=== PATIENT | female | born 1990 | race African-American/Black ===

== ENCOUNTER 2017-12-06 15:10 | Emergency (ER) | payer OTHER ==
[2017-12-06 16:55] LABS: BASO % 0.2 % (0.0-1.0); EOS # 0.1 10^3/uL (0.0-0.50); EOS % 1.5 % (0.0-3.0); HEMATOCRIT 39.4 % (36.0-47.0); HEMOGLOBIN 12.8 g/dl (12.0-16.0); IMMATURE GRANULOCYTE % 0.3 % (0-3.0); LYMPH # 1.9 10^3/uL (1.5-6.5); LYMPH % 30.5 % (24.0-44.0); MEAN CORPUSCULAR HEMOGLOBIN 29.2 pg (27.0-33.0); MEAN CORPUSCULAR HGB CONC 32.5 g/dl (32.0-36.5); MEAN CORPUSCULAR VOLUME 89.7 fl (80.0-96.0); MONO # 0.7 10^3/uL (0.0-0.8); NEUTROPHILS # 3.5 10^3/uL (1.8-7.7); NEUTROPHILS % 56.5 % (36.0-66.0); PLATELET COUNT, AUTOMATED 227 10^3/uL (150-450); RED BLOOD COUNT 4.39 10^6/uL (4.00-5.40); RED CELL DISTRIBUTION WIDTH 13.9 % (11.5-14.5); WHITE BLOOD COUNT 6.2 10^3/uL (4.0-10.0)
[2017-12-06 17:12] LABS: KETONE, URINE AUTO RFX NEGATIVE (NEGATIVE); LEUKOCYTE ESTERASE UR AUTO RFX NEGATIVE (NEGATIVE); NITRITE, URINE AUTO RFX NEGATIVE (NEGATIVE); RBC, URINE AUTO RFX 1 /HPF (0-3); SPECIFIC GRAVITY UR AUTO RFX 1.009 (1.002-1.035); SQUAM EPITHELIAL CELL UR AURFX 0 /HPF (0-6); WBC, URINE AUTO RFX 0 /HPF (0-3)
[2017-12-06 17:22] LABS: HCG, SERUM QUANTITATIVE 1423 MIU/ML
== END 2017-12-06 18:10 | disposition home or self-care (01) ==
LOC: M ED 15:10
DX: O99.89 Other specified diseases and conditions complicating pregnancy, childbirth and the puerperium (principal); N93.9 Abnormal uterine and vaginal bleeding, unspecified; Z3A.00 Weeks of gestation of pregnancy not specified; Z87.891 Personal history of nicotine dependence
CPT/HCPCS: 76801

== ENCOUNTER 2018-01-28 13:03 | Inpatient (IN) | payer OTHER ==
[2018-01-28] MEDS: MORPHINE 4 MG/ML 1ML VIAL/SYRINGE (J2270) IV (13:25)
[2018-01-28] MEDS: NS 1,000 ML IV (13:34)
[2018-01-28 13:39] LABS: EOS % 0.1 % (0.0-3.0); HEMATOCRIT 31.4 % (36.0-47.0); HEMOGLOBIN 10.6 g/dl (12.0-15.5); IMMATURE GRANULOCYTE % 0.3 % (0-3.0); LYMPH # 1.2 10^3/uL (1.5-6.5); LYMPH % 11.7 % (24.0-44.0); MEAN CORPUSCULAR HEMOGLOBIN 29.2 pg (27.0-33.0); MEAN CORPUSCULAR HGB CONC 33.8 g/dl (32.0-36.5); MEAN CORPUSCULAR VOLUME 86.5 fl (80.0-96.0); MONO # 0.8 10^3/uL (0.0-0.8); MONO % 7.7 % (0.0-5.0); NEUTROPHILS % 80.2 % (36.0-66.0); PLATELET COUNT, AUTOMATED 273 10^3/uL (150-450); RED BLOOD COUNT 3.63 10^6/uL (4.00-5.40); RED CELL DISTRIBUTION WIDTH 13.2 % (11.5-14.5); WHITE BLOOD COUNT 9.9 10^3/uL (4.0-10.0)
[2018-01-28 13:53] LABS: INR 1.04; PROTHROMBIN TIME 13.8 SECONDS (12.4-14.5)
[2018-01-28 14:07] LABS: CK-MB VALUE MASS < 1.0 NG/ML (<3.6); CPK CREATINE PHOSPHOKINASE 71 U/L (26-192); TROPONIN I < 0.02 NG/ML (< 0.10)
[2018-01-28] MEDS: ONDANSETRON 4MG/2ML VIAL (J2405) IV (14:12)
[2018-01-28] MEDS: HYDROmorphone HCL 1 MG/ML SYRINGE (J1170) IV ×2 (14:13→16:13)
[2018-01-28 15:08] LABS: ALBUMIN 4.4 GM/DL (3.2-5.2); ALBUMIN/GLOBULIN RATIO 1.33 (1.00-1.93); ALKALINE PHOSPHATASE 52 U/L (45-117); ALT/SGPT 16 U/L (12-78); AMYLASE 43 U/L (25-115); ANION GAP 8 MEQ/L (8-16); AST/SGOT 12 U/L (7-37); BILIRUBIN,DIRECT 0.3 MG/DL (0.0-0.2); BILIRUBIN,TOTAL 0.8 MG/DL (0.2-1.0); BLOOD UREA NITROGEN 14 MG/DL (7-18); CALCIUM LEVEL 8.7 MG/DL (8.5-10.1); CARBON DIOXIDE LEVEL 24 MEQ/L (21-32); CHLORIDE LEVEL 104 MEQ/L (98-107); GLOMERULAR FILTRATION RATE > 60.0 (>60); GLUCOSE, FASTING 127 MG/DL (70-100); HCG, SERUM QUANTITATIVE 303 MIU/ML; LIPASE 31 U/L (73-393); POTASSIUM SERUM 3.9 MEQ/L (3.5-5.1); SODIUM LEVEL 136 MEQ/L (136-145); TOTAL PROTEIN 7.7 GM/DL (6.4-8.2)
[2018-01-28] MEDS: BUPIVACAINE HCL 0.25% 30 ML VIAL As Ordered ×2 (16:27→18:30)
[2018-01-28] MEDS ORDERED: MIDAZOLAM INJ 2 MG/2 ML VIAL (J2250) As Ordered (16:32)
[2018-01-28] MEDS ORDERED: ROCURONIUM BROMIDE 50 MG/5 ML VIAL As Ordered (16:32)
[2018-01-28] MEDS ORDERED: SUCCINYLCHOLINE 100 MG/5 ML SYRINGE (J0330) As Ordered (16:32)
[2018-01-28] MEDS ORDERED: fentaNYL 100 MCG/2 ML INJECTION (J3010) As Ordered ×2 (16:32→20:05)
[2018-01-28] MEDS ORDERED: PROPOFOL 200 MG/20 ML VIAL As Ordered (16:32)
[2018-01-28] MEDS ORDERED: LIDOCAINE 2% INJ 100 MG/5 ML SDV (FOR ANES.) As Ordered (16:32)
[2018-01-28] MEDS ORDERED: NEOSTIGMINE 10 MG/10 ML VIAL (J2710) As Ordered (18:58)
[2018-01-28] MEDS ORDERED: GLYCOPYRROLATE INJ 0.2 MG/ML 2 ML VIAL As Ordered (18:59)
[2018-01-28] MEDS ORDERED: dexameTHASONE 4 MG/ML 1ML VIAL (J1100) As Ordered (19:02)
[2018-01-28] MEDS ORDERED: ONDANSETRON 4MG/2ML VIAL (J2405) As Ordered (19:02)
[2018-01-28] MEDS: SILVER NITRATE APPLICATOR As Ordered (19:45)
[2018-01-28] MEDS ORDERED: PERCOCET 5MG/325MG TAB PO (20:15)
[2018-01-28] MEDS: fentaNYL 100 MCG/2 ML INJECTION (J3010) IV ×4 (20:15→20:30)
[2018-01-28] MEDS ORDERED: METOCLOPRAMIDE INJ 10MG/2ML VIAL (J2765) IV (20:15)
[2018-01-28] MEDS ORDERED: ONDANSETRON 4MG/2ML VIAL (J2405) IV ×2 (20:15)
[2018-01-28] MEDS ORDERED: HYDROmorphone HCL 1 MG/ML SYRINGE (J1170) IV (20:15)
[2018-01-28] MEDS: PERCOCET 5MG/325MG TAB PO (20:30)
[2018-01-28] MEDS: LR 1,000 ML IV ×2 (21:21→21:43)
[2018-01-28] MEDS: KETOROLAC 30 MG/ML VIAL (J1885) IV (21:21)
[2018-01-28] MEDS: DOCUSATE SODIUM 100 MG CAP PO (21:21)
[2018-01-29] MEDS: KETOROLAC 30 MG/ML VIAL (J1885) IV ×3 (03:04→16:11)
[2018-01-29] MEDS: LR 1,000 ML IV ×3 (05:23→17:11)
[2018-01-29 05:30] LABS: IMMATURE GRANULOCYTE % 0.1 % (0-3.0); LYMPH # 0.8 10^3/uL (1.5-6.5); LYMPH % 10.5 % (24.0-44.0); MEAN CORPUSCULAR HEMOGLOBIN 29.7 pg (27.0-33.0); MEAN CORPUSCULAR VOLUME 90.1 fl (80.0-96.0); MONO # 0.7 10^3/uL (0.0-0.8); MONO % 8.5 % (0.0-5.0); NEUTROPHILS # 6.4 10^3/uL (1.8-7.7); NEUTROPHILS % 80.9 % (36.0-66.0); PLATELET COUNT, AUTOMATED 174 10^3/uL (150-450); RED BLOOD COUNT 2.22 10^6/uL (4.00-5.40); RED CELL DISTRIBUTION WIDTH 13.3 % (11.5-14.5); WHITE BLOOD COUNT 7.9 10^3/uL (4.0-10.0)
[2018-01-29] MEDS: PERCOCET 5MG/325MG TAB PO ×2 (05:30→19:07)
[2018-01-29 05:33] LABS: HEMOGLOBIN 6.6 g/dl (12.0-15.5)
[2018-01-29] MEDS ORDERED: NS 1,000 ML IV (07:05)
[2018-01-29] MEDS: diphenhydrAMINE 25 MG CAP PO (08:20)
[2018-01-29] MEDS: DOCUSATE SODIUM 100 MG CAP PO (08:20)
[2018-01-29] MEDS: ACETAMINOPHEN TAB 650MG DOSE (2X325MG) PO (08:21)
[2018-01-29 09:13] LABS: IMMEDIATE SPIN CROSSMATCH 1 2
[2018-01-29 19:10] LABS: HEMATOCRIT 25.7 % (36.0-47.0); HEMOGLOBIN 8.5 g/dl (12.0-15.5); MEAN CORPUSCULAR HEMOGLOBIN 29.4 pg (27.0-33.0); MEAN CORPUSCULAR HGB CONC 33.1 g/dl (32.0-36.5); MEAN CORPUSCULAR VOLUME 88.9 fl (80.0-96.0); PLATELET COUNT, AUTOMATED 166 10^3/uL (150-450); RED BLOOD COUNT 2.89 10^6/uL (4.00-5.40); RED CELL DISTRIBUTION WIDTH 13.7 % (11.5-14.5); WHITE BLOOD COUNT 7.4 10^3/uL (4.0-10.0)
== END 2018-01-29 22:14 | disposition home or self-care (01) | DRG 777 ==
LOC: M ED 13:03 → M SDC 16:45 → M OBS 20:56
PROC: 0UT64ZZ Resection of Left Fallopian Tube, Percutaneous Endoscopic Approach (ICD-10-PCS; principal; 2018-01-28 14:45)
PROC: 0W9J4ZZ Drainage of Pelvic Cavity, Percutaneous Endoscopic Approach (ICD-10-PCS; 2018-01-28 14:45)
PROC: 30233N1 Transfusion of Nonautologous Red Blood Cells into Peripheral Vein, Percutaneous Approach (ICD-10-PCS; 2018-01-28 17:55)
DX: O00.102 Left tubal pregnancy without intrauterine pregnancy (principal); K66.1 Hemoperitoneum; O08.89 Other complications following an ectopic and molar pregnancy

== ENCOUNTER 2018-02-22 05:19 | Emergency (ER) | payer OTHER ==
[2018-02-22 06:16] LABS: BASO % 0.4 % (0.0-1.0); EOS % 0.7 % (0.0-3.0); HEMATOCRIT 37.7 % (36.0-47.0); HEMOGLOBIN 12.3 g/dl (12.0-15.5); IMMATURE GRANULOCYTE % 0.4 % (0-3.0); LYMPH # 1.6 10^3/uL (1.5-6.5); LYMPH % 28.7 % (24.0-44.0); MEAN CORPUSCULAR HEMOGLOBIN 28.9 pg (27.0-33.0); MEAN CORPUSCULAR HGB CONC 32.6 g/dl (32.0-36.5); MEAN CORPUSCULAR VOLUME 88.5 fl (80.0-96.0); MONO # 0.6 10^3/uL (0.0-0.8); MONO % 11.5 % (0.0-5.0); NEUTROPHILS # 3.2 10^3/uL (1.8-7.7); NEUTROPHILS % 58.3 % (36.0-66.0); PLATELET COUNT, AUTOMATED 214 10^3/uL (150-450); RED BLOOD COUNT 4.26 10^6/uL (4.00-5.40); WHITE BLOOD COUNT 5.4 10^3/uL (4.0-10.0)
[2018-02-22 06:28] LABS: INR 1.04; PROTHROMBIN TIME 13.7 SECONDS (12.4-14.5)
[2018-02-22] MEDS ORDERED: ISOVUE-370 76% 100ML VIAL (Q9967) As Ordered (06:41)
[2018-02-22 06:42] LABS: ALBUMIN/GLOBULIN RATIO 1.03 (1.00-1.93); ALKALINE PHOSPHATASE 61 U/L (45-117); ALT/SGPT 39 U/L (12-78); ANION GAP 7 MEQ/L (8-16); AST/SGOT 52 U/L (7-37); BILIRUBIN,DIRECT < 0.1 MG/DL (0.0-0.2); BILIRUBIN,TOTAL 0.2 MG/DL (0.2-1.0); BLOOD UREA NITROGEN 7 MG/DL (7-18); CALCIUM LEVEL 8.6 MG/DL (8.5-10.1); CARBON DIOXIDE LEVEL 25 MEQ/L (21-32); CHLORIDE LEVEL 108 MEQ/L (98-107); CK-MB VALUE MASS 6.5 NG/ML (<3.6); CPK CREATINE PHOSPHOKINASE 540 U/L (26-192); CREATININE FOR GFR 0.83 MG/DL (0.55-1.30); ETHYL ALCOHOL (ETHANOL) 0.148 % (0.000-0.010); GLOMERULAR FILTRATION RATE > 60.0 (>60); GLUCOSE, FASTING 98 MG/DL (70-100); LIPASE 63 U/L (73-393); POTASSIUM SERUM 3.6 MEQ/L (3.5-5.1); SODIUM LEVEL 140 MEQ/L (136-145); TOTAL PROTEIN 7.9 GM/DL (6.4-8.2); TROPONIN I < 0.02 NG/ML (< 0.10)
[2018-02-22 06:50] LABS: LACTIC ACID SEPSIS PROTOCOL 1.2 MMOL/L (0.4-2.0)
[2018-02-22 07:15] LABS: HIVSOURCE0 NEGATIVE (NEGATIVE)
[2018-02-22 07:18] LABS: CONTROL LINE INT CTR LINE PRESENT; HIV SOURCE PT 1 NEGATIVE (NEGATIVE)
[2018-02-22 07:32] LABS: AMPHETAMINES LEVEL URINE NEGATIVE (NEGATIVE); BARBITURATES URINE NEGATIVE (NEGATIVE); BENZODIAZEPINES URINE POSITIVE (NEGATIVE); CANNABINOIDS URINE POSITIVE (NEGATIVE); COCAINE METABOLITE URINE NEGATIVE (NEGATIVE); METHADONE URINE NEGATIVE (NEGATIVE); OPIATES URINE NEGATIVE (NEGATIVE); PHENCYCLIDINE URINE NEGATIVE (NEGATIVE)
[2018-02-22] MEDS: PERCOCET 5MG/325MG TAB PO (14:45)
[2018-02-23 09:31] LABS: HEPATITIS B SURFACE ANTIGEN NEGATIVE (NEGATIVE)
[2018-02-23 09:58] LABS: HEPATITIS C VIRUS ABY INDEX < 0.0 INDEX (<0.8)
== END 2018-02-22 15:49 | disposition home or self-care (01) ==
LOC: M ED 05:19
DX: S86.812A Strain of other muscle(s) and tendon(s) at lower leg level, left leg, initial encounter (principal); S80.02XA Contusion of left knee, initial encounter; F10.129 Alcohol abuse with intoxication, unspecified; V48.0XXA Car driver injured in noncollision transport accident in nontraffic accident, initial encounter; Y92.9 Unspecified place or not applicable; Y93.9 Activity, unspecified; Y99.9 Unspecified external cause status; F17.200 Nicotine dependence, unspecified, uncomplicated; M47.812 Spondylosis without myelopathy or radiculopathy, cervical region
CPT/HCPCS: Q9967

== ENCOUNTER → 2018-07-28 | Outpatient (CLI) | payer OTHER | LOC: M OUTALCOH 08:49 | DX: F10.20 Alcohol dependence, uncomplicated (principal) ==

== ENCOUNTER → 2019-01-28 | Outpatient (CLI) | payer OTHER ==
[~2019-01-28] MED LIST: COLA100C5 PO; NAPR-885 PO; OXYC1TAB23 PO; PERC5TAB12 PO; prenatal PO
== END ==
LOC: M OUTALCOH 08:01
PROVIDERS: ATTEND Psychiatry & Neurology Psychiatry
DX: F10.20 Alcohol dependence, uncomplicated (principal)

== ENCOUNTER 2019-03-02 16:00 | Outpatient (RCR) | payer OTHER | END 2019-03-05 | LOC: M OUTALCOH 16:00 | PROVIDERS: ATTEND Psychiatry & Neurology Psychiatry | DX: F10.20 Alcohol dependence, uncomplicated (principal); Z72.0 Tobacco use ==

== ENCOUNTER 2019-03-21 05:58 | Inpatient (IN) | payer OTHER ==
[~2019-03-21] VITALS: Ht 170.2 cm; Wt 71.5 kg
[2019-03-21] VITALS (15 sets, daily range): BP systolic 137–167; BP diastolic 74–104; O2SAT 100
[2019-03-21] MEDS ORDERED: HALOPERIDOL 5 MG/ML VIAL (J1630) As Ordered ONE (06:04)
[2019-03-21] MEDS ORDERED: LORazepam 2 MG/ML VIAL (J2060) As Ordered ONE (06:04)
[2019-03-21] MEDS ORDERED: diphenhydrAMINE INJ 50MG/ML VIAL (J1200) As Ordered ONE (06:05)
[2019-03-21] MEDS ORDERED: ETOMIDATE INJ 20MG/10ML VIAL IV ONE (06:15)
[2019-03-21] MEDS ORDERED: LORazepam 2 MG/ML VIAL (J2060) IM ONE (06:15)
[2019-03-21] MEDS ORDERED: NS 1,000 ML IV ONE (06:15)
[2019-03-21] MEDS ORDERED: ROCURONIUM BROMIDE 50 MG/5 ML VIAL IV ONE (06:15)
[2019-03-21] MEDS ORDERED: diphenhydrAMINE INJ 50MG/ML VIAL (J1200) IM ONE (06:15)
[2019-03-21] MEDS ORDERED: HALOPERIDOL 5 MG/ML VIAL (J1630) IM ONE (06:15)
[2019-03-21] MEDS: PROPOFOL 1,000 MG in APPROPRIATE DILUENT 1 EA IV SCH ×7 (06:25→21:44)
[2019-03-21] MEDS ORDERED: ISOVUE-370 76% 100ML VIAL (Q9967) As Ordered ONE (06:30)
[2019-03-21 06:44] LABS: BASO % 0.3 % (0.0-1.0); EOS % 0.5 % (0.0-3.0); HEMATOCRIT 43.9 % (36.0-47.0); HEMOGLOBIN 14.4 g/dl (12.0-15.5); LYMPH # 2.6 10^3/uL (1.5-6.5); LYMPH % 45.5 % (24.0-44.0); MEAN CORPUSCULAR HEMOGLOBIN 29.5 pg (27.0-33.0); MEAN CORPUSCULAR HGB CONC 32.8 g/dl (32.0-36.5); MONO # 0.5 10^3/uL (0.0-0.8); MONO % 9.1 % (0.0-5.0); NEUTROPHILS # 2.5 10^3/uL (1.8-7.7); NEUTROPHILS % 44.3 % (36.0-66.0); PLATELET COUNT, AUTOMATED 276 10^3/uL (150-450); RED BLOOD COUNT 4.88 10^6/uL (4.00-5.40); WHITE BLOOD COUNT 5.7 10^3/uL (4.0-10.0)
[2019-03-21 07:12] LABS: CK-MB VALUE MASS 3.5 NG/ML (<3.6); CPK CREATINE PHOSPHOKINASE 455 U/L (26-192); ETHYL ALCOHOL (ETHANOL) 0.335 % (0.000-0.010); MB/CK RELATIVE INDEX 0.77 (< OR =4); TROPONIN I < 0.02 NG/ML (< 0.10)
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
[2019-03-21 07:29] LABS: ABG HCO3 19.6 MEQ/L (22.0-26.0); ABG O2 SATURATION 99.1 % (95.0-99.0); ABG PARTIAL PRESSURE CO2 35.2 mmHg (35.0-45.0); ABG PARTIAL PRESSURE O2 162.1 mmHg (75.0-100.0); ABG STANDARD HCO3 20.4 MEQ/L (22.0-26.0); ABG TOTAL CO2 20.7 MEQ/L (22.0-29.0); ABG pH (ARTERIAL) 7.364 UNITS (7.350-7.450)
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
[2019-03-21 07:43] LABS: AMPHETAMINES LEVEL URINE NEGATIVE (NEGATIVE); BARBITURATES URINE NEGATIVE (NEGATIVE); BENZODIAZEPINES URINE NEGATIVE (NEGATIVE); CANNABINOIDS URINE NEGATIVE (NEGATIVE); COCAINE METABOLITE URINE POSITIVE (NEGATIVE); METHADONE URINE NEGATIVE (NEGATIVE); OPIATES URINE NEGATIVE (NEGATIVE); PHENCYCLIDINE URINE NEGATIVE (NEGATIVE)
[2019-03-21] MEDS ORDERED: MIDAZOLAM INJ 2 MG/2 ML VIAL (J2250) IV ONE (08:15)
[2019-03-21] MEDS ORDERED: KETOROLAC 30 MG/ML VIAL (J1885) IV PRN (10:00)
[2019-03-21] MEDS ORDERED: ETOMIDATE INJ 20MG/10ML VIAL ONE (10:56)
[2019-03-21] MEDS ORDERED: ROCURONIUM BROMIDE 50 MG/5 ML VIAL ONE (10:56)
[2019-03-21] MEDS: MIDAZOLAM INJ 2 MG/2 ML VIAL (J2250) IV PRN ×10 (11:43→23:09)
[2019-03-21] MEDS: PANTOPRAZOLE 40MG INJ (PROTONIX) (C9113) IV SCH (11:58)
[2019-03-21] MEDS: LR 1,000 ML IV SCH ×2 (11:58→19:14)
[2019-03-21] MEDS: IPRATROPIUM 0.5MG/ALBUTEROL 2.5MG INH SOL UD 3ML (DUONEB)(J7620) NEB SCH ×4 (12:21→23:04)
[2019-03-21 14:20] LABS: BASO % 0.2 % (0.0-1.0); EOS # 0.1 10^3/uL (0.0-0.50); HEMATOCRIT 39.1 % (36.0-47.0); HEMOGLOBIN 12.7 g/dl (12.0-15.5); LYMPH # 1.5 10^3/uL (1.5-6.5); LYMPH % 23.4 % (24.0-44.0); MEAN CORPUSCULAR HEMOGLOBIN 28.8 pg (27.0-33.0); MEAN CORPUSCULAR HGB CONC 32.5 g/dl (32.0-36.5); MEAN CORPUSCULAR VOLUME 88.7 fl (80.0-96.0); MONO # 0.8 10^3/uL (0.0-0.8); NEUTROPHILS # 3.9 10^3/uL (1.8-7.7); NEUTROPHILS % 62.1 % (36.0-66.0); PLATELET COUNT, AUTOMATED 222 10^3/uL (150-450); RED BLOOD COUNT 4.41 10^6/uL (4.00-5.40); WHITE BLOOD COUNT 6.3 10^3/uL (4.0-10.0)
[2019-03-21 14:44] LABS: ALBUMIN 3.6 GM/DL (3.2-5.2); ALT/SGPT 28 U/L (12-78); BILIRUBIN,TOTAL 0.3 MG/DL (0.2-1.0); BLOOD UREA NITROGEN 7 MG/DL (7-18); CALCIUM LEVEL 8.1 MG/DL (8.5-10.1); CARBON DIOXIDE LEVEL 24 MEQ/L (21-32); CHLORIDE LEVEL 111 MEQ/L (98-107); CREATININE FOR GFR 0.81 MG/DL (0.55-1.30); GLOMERULAR FILTRATION RATE > 60.0 (>60); GLUCOSE, FASTING 88 MG/DL (70-100); POTASSIUM SERUM 3.2 MEQ/L (3.5-5.1); SODIUM LEVEL 144 MEQ/L (136-145); TOTAL PROTEIN 7.1 GM/DL (6.4-8.2)
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
[2019-03-21] MEDS: MORPHINE 4 MG/ML 1ML VIAL/SYRINGE (J2270) IV PRN ×2 (16:46→21:50)
[2019-03-21 18:12] LABS: ABG HCO3 20.3 MEQ/L (22.0-26.0); ABG O2 SATURATION 99.1 % (95.0-99.0); ABG PARTIAL PRESSURE CO2 38.9 mmHg (35.0-45.0); ABG PARTIAL PRESSURE O2 162.7 mmHg (75.0-100.0); ABG STANDARD HCO3 20.4 MEQ/L (22.0-26.0); ABG TOTAL CO2 21.5 MEQ/L (22.0-29.0); ABG pH (ARTERIAL) 7.336 UNITS (7.350-7.450)
[2019-03-21] MEDS ORDERED: ACETAMINOPHEN 325 MG/10.15 ML UDC GT PRN (23:45)
[2019-03-22] VITALS (15 sets, daily range): BP systolic 113–178; BP diastolic 57–102
[2019-03-22] MEDS: MIDAZOLAM INJ 2 MG/2 ML VIAL (J2250) IV PRN ×5 (00:33→07:25)
[2019-03-22] MEDS: PROPOFOL 1,000 MG in APPROPRIATE DILUENT 1 EA IV SCH ×3 (00:33→05:58)
[2019-03-22] MEDS: LR 1,000 ML IV SCH ×2 (02:45→10:38)
[2019-03-22] MEDS: POTASSIUM CHLORIDE 10% LIQ 20 MEQ/15 ML UDC NG SCH ×2 (02:45→04:28)
[2019-03-22] MEDS: IPRATROPIUM 0.5MG/ALBUTEROL 2.5MG INH SOL UD 3ML (DUONEB)(J7620) NEB SCH ×3 (03:30→11:33)
[2019-03-22] MEDS: MORPHINE 4 MG/ML 1ML VIAL/SYRINGE (J2270) IV PRN ×3 (03:41→07:50)
[2019-03-22 05:27] LABS: ABG BASE EXCESS -1.9 (-2.0-2.0); ABG HCO3 22.2 MEQ/L (22.0-26.0); ABG O2 SATURATION 98.9 % (95.0-99.0); ABG PARTIAL PRESSURE CO2 35.8 mmHg (35.0-45.0); ABG PARTIAL PRESSURE O2 132.7 mmHg (75.0-100.0); ABG STANDARD HCO3 22.9 MEQ/L (22.0-26.0); ABG TOTAL CO2 23.3 MEQ/L (22.0-29.0); ABG pH (ARTERIAL) 7.411 UNITS (7.350-7.450)
[2019-03-22 07:16] LABS: BASO % 0.1 % (0.0-1.0); EOS % 0.2 % (0.0-3.0); HEMATOCRIT 37.1 % (36.0-47.0); LYMPH # 1.3 10^3/uL (1.5-6.5); LYMPH % 15.7 % (24.0-44.0); MEAN CORPUSCULAR HGB CONC 32.3 g/dl (32.0-36.5); MEAN CORPUSCULAR VOLUME 89.6 fl (80.0-96.0); MONO % 11.3 % (0.0-5.0); NEUTROPHILS # 6.1 10^3/uL (1.8-7.7); NEUTROPHILS % 72.3 % (36.0-66.0); PLATELET COUNT, AUTOMATED 203 10^3/uL (150-450); RED BLOOD COUNT 4.14 10^6/uL (4.00-5.40); WHITE BLOOD COUNT 8.4 10^3/uL (4.0-10.0)
--- NOTE | 2019-03-22 07:38 | REP ---
CHEST, PORTABLE: AP portable views of the chest was performed. There is no acute infiltrate. The heart is normal in size. Mediastinal silhouette is unremarkable. There is an endotracheal tube present with the tip 4.2 cm above the elia. Electronically Signed by Newton Vaz MD 03/22/2019 08:34 A
--- NOTE | 2019-03-22 07:55 | REP ---
Portable chest, 07:12 a.m., single semi upright AP portable view: Comparison is 03/21/2019. The lung arteaga remain clear. The cardiac size remains normal. The endotracheal tube tip remains in satisfactory location at the level of the aortic arch, above the elia. There has been interval placement of a nasogastric tube with the tip terminating in the upper abdomen. The precise location of the distal tip is excluded at the inferior film margin. Electronically Signed by Newton Swanson MD 03/22/2019 07:47 A
[2019-03-22 07:57] LABS: ALBUMIN 2.9 GM/DL (3.2-5.2); ALT/SGPT 21 U/L (12-78); BILIRUBIN,TOTAL 0.3 MG/DL (0.2-1.0); BLOOD UREA NITROGEN 6 MG/DL (7-18); CALCIUM LEVEL 8.2 MG/DL (8.5-10.1); CARBON DIOXIDE LEVEL 28 MEQ/L (21-32); CHLORIDE LEVEL 109 MEQ/L (98-107); CREATININE FOR GFR 0.73 MG/DL (0.55-1.30); GLOMERULAR FILTRATION RATE > 60.0 (>60); GLUCOSE, FASTING 94 MG/DL (70-100); POTASSIUM SERUM 4.5 MEQ/L (3.5-5.1); SODIUM LEVEL 141 MEQ/L (136-145); TOTAL PROTEIN 6.4 GM/DL (6.4-8.2)
--- NOTE | 2019-03-22 10:08 | CCN ---
DATE OF VISIT: 03/22/2019 START TIME: 0845 hours STOP TIME: 0922 hours I again attended Erma Palumbo here in the intensive care unit. The patient has been examined and chart reviewed. T-max overnight 100.9, blood pressure 113 to 170s. Heart rate generally in the low 100s with a sinus mechanism. Respiratory rate generally in the teens without any accessory muscle use. Intake and output midnight to midnight 2782 mL in with 720 mL out. Laboratories this morning show a white blood cell count of 8.4, hemoglobin 12.0, platelet count of 203,000, 72% segs, no bands, sodium 141, potassium 4.5, chloride 109, CO2 28, BUN 6, creatinine 0.73. Blood gas this morning on an SIMV of 10, tidal volume of 380, PEEP of 5, pressure support of 10, FiO2 of 40% has a pH of 7.411, pCO2 of 35.8, pO2 132.7. Chest x-ray shows no infiltrate or pneumothorax. No contusion. Lines and tubes are in good position. No acute findings. Initially sedate on propofol. This was discontinued. She had received as needed Versed during the night for agitation. On exam, pupils reactive, sclera clear. Trachea is midline. Lungs clear to auscultation and percussion. No significant focal adventitious breath sounds are identified. Cardiac exam mildly tachycardic, but regular. Peripheral pulses palpable, no edema. Abdomen thin, soft, nontender with active bowel sounds. No obvious organomegaly or masses. Extremities no cyanosis or clubbing. Neurologically initially sedate. Propofol was discontinued. Patient was monitored. She did awaken. Was able to breath comfortably and follow commands and therefore was extubated. No stridor. She complains of pain. Somewhat verbally abusive to the entire staff. Oxygenating well however with saturations 97% on 40% aerosol face mask. The most pressing problems requiring my immediate presence at the beside: 1. Respiratory failure secondary to alcohol intoxication. 2. Scalp laceration with no obvious evidence of focal neurologic deficit. 3. Alcohol abuse. At this point she has been extubated. She is breathing comfortably. Will wean her oxygen. I have spoken at length with Dr. Verma who is the attending physician of record. He will manage her pain. She is reasonably hydrated. She is making urine. Ulcer and deep vein thrombosis (DVT) prophylaxis per the primary service. Pain control per the primary service as well. At this point, as long her oxygenation status remains reasonable we will sign off. I left beside at 0922 hours. 37 minutes of critical care time was delivered at the bedside, not including or procedures.
[2019-03-22] MEDS: PANTOPRAZOLE 40MG INJ (PROTONIX) (C9113) IV SCH (10:37)
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
[2019-03-22] MEDS ORDERED: IBUPROFEN 400 MG TAB PO PRN (12:45)
[2019-03-22] MEDS ORDERED: ACETAMINOPHEN TAB 650MG DOSE (2X325MG) PO PRN (12:45)
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
== END 2019-03-22 16:30 | disposition home or self-care (01) | DRG 384 ==
LOC: M ED 05:58 → M ED INP 09:52 → M ICU 11:25
PROVIDERS: ADMIT Surgery; ATTEND Surgery
PROC: 5A1935Z Respiratory Ventilation, Less than 24 Consecutive Hours (ICD-10-PCS; principal; 2019-03-22)
DX: S01.01XA Laceration without foreign body of scalp, initial encounter (principal); J96.90 Respiratory failure, unspecified, unspecified whether with hypoxia or hypercapnia; F14.90 Cocaine use, unspecified, uncomplicated; F10.129 Alcohol abuse with intoxication, unspecified; V13.5XXA Pedal cycle passenger injured in collision with car, pick-up truck or van in traffic accident, initial encounter

== ENCOUNTER 2019-03-24 15:00 | Outpatient (RCR) | payer OTHER | END 2019-04-04 | LOC: M OUTALCOH 15:00 | PROVIDERS: ATTEND Psychiatry & Neurology Psychiatry | DX: F10.20 Alcohol dependence, uncomplicated (principal); Z72.0 Tobacco use ==